=== PATIENT | female | born 1995 | race Two or more races ===

== ENCOUNTER 2020-10-03 16:19 | Emergency (ER) | payer OTHER ==
[~2020-10-03] VITALS: Ht 165.1 cm; Wt 72.7 kg
[2020-10-03 16:27] VITALS: BP 112/51
== END 2020-10-03 17:13 | disposition home or self-care (01) ==
LOC: ER 16:20
DX: S93.492A Sprain of other ligament of left ankle, initial encounter (principal); Z88.2 Allergy status to sulfonamides; V48.4XXA Person boarding or alighting a car injured in noncollision transport accident, initial encounter; Y93.89 Activity, other specified; Y92.89 Other specified places as the place of occurrence of the external cause; Y99.0 Civilian activity done for income or pay
CPT/HCPCS: 73610; 99283

== ENCOUNTER 2020-10-10 10:17 | Emergency (ER) | payer OTHER ==
[~2020-10-10] VITALS: Ht 165.1 cm; Wt 72.7 kg
[2020-10-10 10:27] VITALS: BP 127/73
[2020-10-10] MEDS ORDERED: acetaminophen 325mg tablet PO ONE (10:50)
== END 2020-10-10 11:36 | disposition home or self-care (01) ==
LOC: ER 10:18
DX: S90.01XA Contusion of right ankle, initial encounter (principal); Z88.2 Allergy status to sulfonamides; W19.XXXA Unspecified fall, initial encounter; Z91.81 History of falling; Y93.89 Activity, other specified; Y92.89 Other specified places as the place of occurrence of the external cause; Y99.8 Other external cause status
CPT/HCPCS: 29515; 73610; 99284